=== PATIENT | male | born 1940 | race Caucasian/White ===

== ENCOUNTER → 2024-01-28 11:06 | Outpatient (REF) | payer MEDICARE, SELFPAY | LOC: RAD 11:06 | PROVIDERS: ATTENDING PHYSICIAN Specialist; FAMILY PHYSICIAN Internal Medicine Geriatric Medicine | DX: M25.511 Pain in right shoulder (principal) | CPT/HCPCS: 73200 ==

== ENCOUNTER 2024-02-22 06:01 | Day surgery (SDC) | payer MEDICARE, SELFPAY ==
[2024-02-04 09:40] VITALS: BMI 26.2
[2024-02-04 10:14] LABS: Hematocrit 39.8 % (39.0-52.0); Hemoglobin 13.7 g/dL (13.0-18.0); Mean Corp Hgb Conc. 34.4 g/dL (33.0-37.0); Mean Corpuscular Hgb 33.7 pg (27.0-31.0); Mean Platelet Volume 9.5 fL (7.4-10.4); Platelet Count 147 10^3/uL (130-400); Red Blood Cell Count 4.06 10^6/uL (4.70-6.10); Red Cell Dist. Width 14.2 % (11.5-14.5); White Blood Cell Count 3.8 10^3/uL (4.8-10.8)
[2024-02-04 10:38] LABS: ALT (SGPT) 21 U/L (0-50); AST (SGOT) 25 U/L (17-59); Albumin 4.2 g/dl (3.5-5.0); Alkaline Phosphatase 87 U/L (38-126); Blood Urea Nitrogen 31 mg/dl (9-20); Calcium 9.1 mg/dl (8.4-10.2); Carbon Dioxide 31 mmol/L (22-30); Chloride 105 mmol/L (98-107); Estimated Creatinine Clearance 68 ml/min; Glucose 101 mg/dl (70-99); Potassium 4.1 mmol/L (3.5-5.1); Sodium 145 mmol/L (135-145); Total Bilirubin 0.9 mg/dl (0.2-1.3); Total Protein 6.5 g/dl (6.3-8.2); eGFR > 60.00
[2024-02-04 12:23] LABS: Glycohemoglobin (HgbA1c) 5.4 % (4.0-5.6)
[2024-02-16 12:43] VITALS: BMI 26.2
[2024-02-22] VITALS (10 sets, daily range): BP systolic 109–147; BP diastolic 66–83; BMI 26.2
[2024-02-22] MEDS: CELEBREX 200 MG PO (06:37)
[2024-02-22] MEDS: NORMOSOL-R/PLASMALYTE-A 1000 IV (06:37)
[2024-02-22] MEDS: TYLENOL 1000 MG PO (06:37)
[2024-02-22] MEDS: ANCEF 5 IV (11:25)
== END 2024-02-22 11:50 | disposition home or self-care (01) ==
LOC: SDS 06:01
PROVIDERS: ATTENDING PHYSICIAN Specialist; FAMILY PHYSICIAN Internal Medicine Geriatric Medicine; REFERRING PHYSICIAN Internal Medicine Cardiovascular Disease
DX: M19.011 Primary osteoarthritis, right shoulder (principal); M25.711 Osteophyte, right shoulder; Z95.2 Presence of prosthetic heart valve
CPT/HCPCS: 23472; 36415; 73020; 80053; 83036; 85027; 86850; 86900; 86901; 87070; C1713; C1776

== ENCOUNTER 2024-04-06 10:57 | Outpatient (RCR) | payer MEDICARE, SELFPAY | END 2024-04-06 23:59 | disposition home or self-care (01) | LOC: RPT 10:57 | PROVIDERS: ATTENDING PHYSICIAN Physician Assistant Surgical; FAMILY PHYSICIAN Internal Medicine Geriatric Medicine | DX: Z47.1 Aftercare following joint replacement surgery (principal); Z73.6 Limitation of activities due to disability; M62.81 Muscle weakness (generalized); M25.511 Pain in right shoulder; Z96.611 Presence of right artificial shoulder joint | CPT/HCPCS: 97010; 97110; 97161 ==

== ENCOUNTER 2024-05-01 11:05 | Outpatient (RCR) | payer MEDICARE, SELFPAY | END 2024-05-01 23:59 | disposition home or self-care (01) | LOC: RPT 11:05 | PROVIDERS: ATTENDING PHYSICIAN Physician Assistant Surgical; FAMILY PHYSICIAN Internal Medicine Geriatric Medicine | DX: Z47.1 Aftercare following joint replacement surgery (principal); Z73.6 Limitation of activities due to disability; M62.81 Muscle weakness (generalized); M25.511 Pain in right shoulder; Z96.611 Presence of right artificial shoulder joint | CPT/HCPCS: 97010; 97110 ==

== ENCOUNTER 2024-06-05 11:10 | Outpatient (RCR) | payer MEDICARE, SELFPAY | END 2024-06-05 11:48 | disposition home or self-care (01) | LOC: RPT 11:10 | PROVIDERS: ATTENDING PHYSICIAN Physician Assistant Surgical; FAMILY PHYSICIAN Internal Medicine Geriatric Medicine | DX: Z47.1 Aftercare following joint replacement surgery (principal); Z73.6 Limitation of activities due to disability; M62.81 Muscle weakness (generalized); M25.511 Pain in right shoulder; Z96.611 Presence of right artificial shoulder joint | CPT/HCPCS: 97010; 97110 ==

== ENCOUNTER → 2025-03-12 13:59 | Outpatient (REF) | payer MEDICARE, SELFPAY | LOC: HWRAD 13:59 | PROVIDERS: ATTENDING PHYSICIAN Internal Medicine Critical Care Medicine; FAMILY PHYSICIAN Internal Medicine Geriatric Medicine; REFERRING PHYSICIAN Internal Medicine Cardiovascular Disease | DX: G47.33 Obstructive sleep apnea (adult) (pediatric) (principal) | CPT/HCPCS: 71250 ==